=== PATIENT | male | born 1960 | race Two or more races ===

== ENCOUNTER 2017-10-06 08:08 | Emergency (ER) | payer OTHER ==
[~2017-10-06] VITALS: Ht 177.8 cm; Wt 108.9 kg
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
[2017-10-06] MEDS ORDERED: IBUPROFEN 600 MG TABLET. PO ONE (08:30)
[2017-10-06] MEDS ORDERED: predniSONE 20 MG TABLET PO ONE (08:30)
[2017-10-06] MEDS ORDERED: ACETAMINOPHEN 500 MG TABLET PO ONE (08:30)
[2017-10-06] MEDS ORDERED: PRED20TA PO (08:49)
--- NOTE | 2017-10-06 08:54 | RAD ---
EXAM: Right knee, 4 views HISTORY: Pain. Popping. COMPARISON: None. FINDINGS: 4 views of the right knee are obtained. There is no fracture, dislocation or subluxation. There is minimal tricompartmental spurring. There is no joint effusion. There is prepatellar soft tissue prominence. IMPRESSION: 1. Prepatellar soft tissue prominence. If there has been a recent fall, this may be due to a soft tissue hematoma. In the absence of recent trauma, this may be due to prepatellar bursitis. 2. Minimal tricompartmental osteoarthritis of the right knee. Electronically signed by: Winter Haile MD (10/06/2017 8:51 AM) [facility]
[2017-10-06 09:07] VITALS: BP 149/100
== END 2017-10-06 09:03 | disposition home or self-care (01) ==
LOC: ER 08:08
DX: S89.91XA Unspecified injury of right lower leg, initial encounter (principal); X50.9XXA Other and unspecified overexertion or strenuous movements or postures, initial encounter; Y93.02 Activity, running; Y99.8 Other external cause status; Y92.89 Other specified places as the place of occurrence of the external cause
CPT/HCPCS: 73562; 99284; J7512

== ENCOUNTER → 2020-11-21 | Outpatient (CLI) | payer OTHER ==
[~2020-11-21] MED LIST: PRED20TA PO
--- NOTE | 2020-11-21 11:35 | RAD ---
XR FOOT_RIGHT 3 VIEWS, XR EXAM OF ANKLE_RIGHT 3VIEWS Clinical indications: Reason: RIGHT HEEL PAIN and posterior right ankle pain. Three-view right ankle study: No acute fracture or dislocation or osteolytic process is evident. The mortise ankle joint is intact. Three-view right foot study: No acute fracture or dislocation or lytic process is seen. No periosteal reaction is evident. Small plantar spur of the calcaneus is seen. IMPRESSION: No acute osseous abnormality is evident. Electronically signed by: Booker Smith MD (11/21/2020 11:32 AM) [id number]
== END ==
LOC: RAD 10:50
PROVIDERS: ATTEND Nurse Practitioner Family
DX: S99.921A Unspecified injury of right foot, initial encounter (principal); M77.31 Calcaneal spur, right foot; X58.XXXA Exposure to other specified factors, initial encounter; Y93.89 Activity, other specified; Y92.89 Other specified places as the place of occurrence of the external cause; Y99.8 Other external cause status
CPT/HCPCS: 73610; 73630